=== PATIENT | male | born 1970 | race Caucasian/White ===

== ENCOUNTER 2020-06-10 22:00 | Emergency (ER) | payer OTHER ==
[~2020-06-10] VITALS: Ht 172.7 cm; Wt 95.7 kg
[2020-06-10 22:23] VITALS: BP 157/93
[2020-06-11 00:20] VITALS: BP 157/93
== END 2020-06-11 00:20 | disposition home or self-care (01) ==
LOC: MED 22:00
DX: M79.661 Pain in right lower leg (principal); E11.9 Type 2 diabetes mellitus without complications; V98.8XXA Other specified transport accidents, initial encounter; Y93.89 Activity, other specified; Y92.89 Other specified places as the place of occurrence of the external cause; Y99.8 Other external cause status
CPT/HCPCS: 99284

== ENCOUNTER 2020-12-05 08:55 | Emergency (ER) | payer OTHER ==
[~2020-12-05] VITALS: Ht 172.7 cm; Wt 93.0 kg
--- NOTE | 2020-12-05 09:00 | NUR ---
PT SENT TO LOBBY
[2020-12-05 09:15] VITALS: BP 176/93
--- NOTE | 2020-12-05 10:00 | NUR ---
50/M PRESENTS TO ED WITH C/O LEFT LOWER LEG PAIN. PATIENT STATES HE HAD A CUT ONE WEEK AGO AND ATTEMPTED TO PEEL THE SCAB OFF, STATING PAIN HAS PERSISTED EVER SINCE AND HE IS CONCERNED IT IS INFECTED. CIRCULAR HEALING WOULD NOTED TO LEFT LOWER LEG, REPORTS 6/10 PAIN. PATIENT ABLE TO AMBULATE WITHOUT ASSISTANCE, NO BLEEDING OR DRAINAGE NOTED.
[2020-12-05] MEDS ORDERED: CEPH-588 PO (11:25)
[2020-12-05 11:53] VITALS: BP 153/94
== END 2020-12-05 11:54 | disposition home or self-care (01) ==
LOC: MED 08:55
DX: S81.802A Unspecified open wound, left lower leg, initial encounter (principal); E11.65 Type 2 diabetes mellitus with hyperglycemia; X58.XXXA Exposure to other specified factors, initial encounter; Y93.89 Activity, other specified; Y92.89 Other specified places as the place of occurrence of the external cause; Y99.8 Other external cause status
CPT/HCPCS: 73590; 81002; 90471; 90715; 99283